=== PATIENT | male | born 1985 | race Caucasian/White ===

== ENCOUNTER 2017-11-28 19:07 | Emergency (ER) | payer OTHER, MEDICAID, SELFPAY ==
[2017-11-28 19:40] VITALS: BP 134/90; PULSE 64; RESP 18; TEMP 36.3; O2SAT 99; BMI 28.7
[2017-11-28 22:04] VITALS: BP 159/108; PULSE 57; RESP 14; O2SAT 100
--- NOTE | 2017-11-28 22:26 | DI.CT.S_ITS ---
PROCEDURE: CT ABDOMEN PELVIS W CON INDICATIONS: 32 year-old man with severe anal pain, possible peroneal abscess. TECHNIQUE: After the administration of oral and intravenous contrast, 5 mm thick sections acquired from the diaphragm to the symphysis. 5 mm coronal and sagittal reformats were acquired. For radiation dose reduction, the following was used: automated exposure control, adjustment of mA and/or kV according to patient size. COMPARISON: None. FINDINGS: Image quality: Excellent. ABDOMEN: Lung bases: Lung bases are clear. Heart size is normal. Tiny hiatal hernia. Solid organs: Liver is normal in size and enhancement. Gallbladder is normal. Biliary system is non dilated. Pancreas enhances normally. Spleen is normal in size and enhancement. No adrenal nodules. Kidneys demonstrate normal size and enhancement, without hydronephrosis. Peritoneum and bowel: Bowel loops demonstrate normal wall thickness and caliber. The appendix measures 7.3 mm, which is just above the upper limits of normal. There is oral contrast within the appendiceal lumen. There is equivocal appendiceal wall thickening. No free fluid or air. Nodes and vessels: No retroperitoneal or mesenteric adenopathy by size criteria. Aorta and inferior vena cava are normal in size. Miscellaneous: Small fat containing periumbilical hernias are present. PELVIS: Appearance of mild rectal renal thickening versus nondistention. Genitourinary: Bladder wall thickness is normal. Miscellaneous: No inguinal hernias. Slightly prominent inguinal lymph nodes are noted bilaterally measuring up to 1.1 cm. Bones: No suspicious bony lesions. No vertebral body compression fractures. IMPRESSION: 1. Anorectal thickening versus nondistention. No perirenal abscess. 2. Small fat containing periumbilical hernias. 3. Appendix is above the upper limits of normal in caliber. Oral contrast is present within the appendiceal lumen. There is equivocal appendiceal wall thickening. Acute appendicitis is felt unlikely but not entirely excluded. 4. Slightly prominent inguinal lymph nodes are noted bilaterally measuring up to 1.1 cm. This finding is nonspecific and may be secondary to infectious, inflammatory or neoplastic etiology. Recommend clinical correlation and follow up. Dictated by: Sen Caballero M.D. on 11/29/2017 at 8:01 Transcribed by: NANCY on 11/29/2017 at 8:09 Approved by: Sen Caballero M.D. on 11/29/2017 at 9:58
--- NOTE | 2017-11-28 22:27 | ED.ABDPAIN ---
HPI - Abdominal Pain General Chief Complaint: Abdominal Pain Stated Complaint: STATES SEVERE ANAL PAIN Time Seen by Provider: 11/28/17 22:25 Source: patient Mode of arrival: ambulatory Limitations: no limitations History of Present Illness HPI narrative: Patient is a 32-year-old male who presents with all rectal discomfort ongoing for the last 4 days. He says every time he has a bowel movement excruciating painful. He denies any blood on toilet paper or his stool. He is now radiating through to his groin. No fever no chills no nausea no vomiting. He has no abdominal pain. He feels like he occasionally has some testicular pain in perineum pain. He has frequent small soft bowel movements. MD complaint: abdominal pain Onset (ago): day(s) (4) Related Data Previous Rx's Medication Instructions Recorded ciprofloxacin HCl [Cipro] 500 mg PO BID #14 tab 11/29/17 hydrocortisone acetate [Anusol-HC] 25 mg DE BID 14 Days each 11/29/17 metronidazole [Flagyl] 500 mg PO TID #21 tab 11/29/17 Allergies Allergy/AdvReac Type Severity Reaction Status Date / Time No Known Drug Allergies Allergy Verified 11/28/17 19:42 Review of Systems Review of Systems GENERAL: Denies chills, fatigue, malaise, fever, sweats, travel HEENT: Denies sinus pain, ear pain, sore throat, difficulty swallowing, neck pain RESPIRATORY: Denies dyspnea, cough, wheezing, hemoptysis, sputum. CARDIOVASCULAR: Denies chest pain, palpitations, orthopnea, edema GASTROINTESTINAL: See HPI : Denies dysuria, frequency, incontinence, hematuria, urinary retention, flank pain. MUSCULOSKELETAL: Denies weakness, joint pain, or bony pain SKIN: No rash, no erythema, no pruritus NEUROLOGIC: Denies weakness, dizziness, headache, numbness, change in speech, confusion PSYCHIATRIC: No concerning psychosocial issues. 12 point review of systems is negative except for those stated above and HPI PFSH Medical History Healthy adult (Acute) Social History Smoking Status: Current every day smoker alcohol intake: never substance use type: does not use Exam Initial Vital Signs Initial Vital Signs: Vital Signs Temperature 97.3 F L 11/28/17 19:40 Pulse Rate 64 11/28/17 19:40 Respiratory Rate 18 11/28/17 19:40 Blood Pressure 134/90 H 11/28/17 19:40 Pulse Oximetry 99 11/28/17 19:40 Const General: cooperative and healthy appearing Orientation: alert, awake and oriented x3 Neck Neck: normal visual inspection, trachea midline, No lymphadenopathy, No midline deformity and No JVD Lymphatic: No lymphedema Chest Chest: normal inspection of the chest Resp Effort & Inspection: normal respiratory effort, able to speak in complete sentences, no respiratory distress and no use of accessory muscles Auscultation: clear to auscultation bilaterally, no rales, no rhonchi and no wheezes Cardio Rate: regular rate Rhythm: regular rhythm Heart Sounds: no click, no gallops, no murmurs and no rubs Pulses: normal peripheral pulses GI Inspection: normal to inspection Palpation: soft, No firm, No guarding and No tender Rectal Exam: visual inspection normal, No abnormal stool, No fecal impaction, No heme negative stool, No hemorrhoids and tenderness (Extreme tenderness with mild swelling noted at about 9 o'clock position) Penis: normal penis Meatus: meatus normal Scrotum: scrotum normal and not edematous Testes: normal, no testicular mass and no testicular swelling Skin General: no rashes or lesions noted, No jaundice and No petechiae Neuro General: alert, oriented x3, gait normal and no focal motor deficits Speech: speech normal Course Orders Ordered: ED Orders 11/28/17 22:26 CT abdomen pelvis w con Stat 11/28/17 23:00 Complete Blood Count AUTO DIFF Stat Comprehensive Metabolic Panel Stat Lipase Stat Discontinued Medications Ciprofloxacin (Cipro) 500 mg PO NOW ONE Stop: 11/29/17 02:00 Sodium Chloride (Normal Saline 0.9%) 1,000 mls @ 1,000 mls/hr IV CONT KILEY Last Infusion: 11/29/17 01:31 Dose: 0 mls/hr Admin: 11/28/17 23:02 Dose: 1,000 mls/hr Ketorolac Tromethamine (Toradol) 30 mg IV NOW ONE Stop: 11/28/17 22:26 Last Admin: 11/28/17 23:02 Dose: 30 mg Levofloxacin (Levaquin) 750 mg PO NOW ONE Stop: 11/29/17 02:09 Last Admin: 11/29/17 02:10 Dose: 750 mg Metronidazole (Metronidazole) 500 mg PO NOW ONE Stop: 11/29/17 02:00 Last Admin: 11/29/17 02:10 Dose: 500 mg Vital Signs - 8 hr 11/28/17 22:04 11/29/17 01:14 Temperature 97.9 F Pulse Rate 57 L 71 Respiratory Rate 14 16 Blood Pressure [Left Arm] 159/108 H Blood Pressure [Right Arm] 157/92 H Pulse Oximetry 100 100 MDM - Abdominal Pain Lab Data Attestation: I reviewed the patient's lab results. Result diagrams: 11/28/17 23:00 11/28/17 23:00 Lab Results 11/28/17 11/28/17 Range/Units 23:00 23:00 WBC 6.8 (4.5-11.0) X10^3/uL RBC 5.00 (4.5-5.9) X10^6/uL Hgb 15.1 (13.5-17.5) g/dL Hct 44.8 (41-53) % MCV 89.4 (80-100) fL MCH 30.1 (26-34) PG MCHC 33.6 (30-36) % RDW 13.2 (11.6-14.8) % Plt Count 184 (150-400) X10^3/uL Neut % (Auto) 65.1 (50-75) % Lymph % (Auto) 21.5 L (25-40) % Bonner % (Auto) 12.5 (3-14) % Eos % (Auto) 0.3 L (2-4) % Baso % (Auto) 0.6 (0-2) % Neut # (Auto) 4400 (4388-4983) /uL Sodium 141 (137-145) mmol/L Potassium 3.9 (3.4-5.1) mmol/L Chloride 101 (98-107) mmol/L Carbon Dioxide 30 (22-32) mmol/L BUN 9 (9-20) mg/dL Creatinine 0.70 (0.66-1.25) mg/dL Estimated GFR > 60.0 (>60) mL/min BUN/Creatinine Ratio 12.9 (6-22) Glucose 89 (70-100) mg/dL Calcium 9.4 (8.4-10.2) mg/dL Total Bilirubin 0.7 (0.2-1.3) mg/dL AST 38 (17-59) IU/L ALT 34 (21-72) IU/L Alkaline Phosphatase 69 (38-126) U/L Total Protein 7.3 (6.3-8.2) g/dL Albumin 4.5 (3.5-5.0) g/dL Globulin 2.8 (1.7-4.1) g/dL Albumin/Globulin Ratio 1.6 (1.0-2.8) Lipase 18 L (23-300) U/L Point of care testing: Urine Dip Bedside Urine Glucose Negative Urine Specific [place] 1.015 Bedside Urine Occult Blood - Negative Bedside Urine pH 6.5 Bedside Urine Protein - Negative Bedside Urine Urobilinogen - Negative Bedside Urine Nitrite - Negative Bedside Urine Leukocytes - Negative Esterase Imaging Data CT scan - abdomen: Radiologist's impression: assembler 1st shift report: No acute intra abdominal or pelvic abnormalities are identified. Questionable rectal thickening versus nondistention A small periumbilical hernia is noted containing fat. Multiple lymph nodes are present in the groin regions measuring up to approximately 1 cm in short axis dimension. MDM Narrative Medical decision making narrative: Patient has only had 4 days of rectal pain. Rectal exam was quite painful. No external of erythema or rash. He is not having any bloody diarrhea or bloody stools to suggest inflammatory bowel disease or hemorrhoid. Blood work is reassuring. However at this time due to the multiple pelvic lymph nodes I will treat for his infection. Also recommended suppositories all to help with inflammation. We discussed that he will need a colonoscopy/sigmoidoscopy once inflammation is is resolved. I discussed all findings with the patient. Education has been performed regarding treatment plan, diagnosis, warning signs and symptoms and all concerns have been addressed. Verbally agree with and understood all of the above. Discharge Plan Departure Patient Disposition: Home, Self-Care Clinical Impression: Colitis Discharge Date/Time: 11/29/17 02:20 Interventions: ED Discharge Assessment Last Done: 11/29/17 02:32 Instructions: Inflammatory Bowel Disease, DI for Ulcerative Colitis Activity Restrictions/Additional Instructions: *You have been diagnosed with colitis *What to do: He will likely need a colonoscopy or sigmoidoscopy once inflammation has improved Avoid constipation *Continue to take medications as directed Cipro 500 mg twice a day for 7 days Flagyl 500 mg 3 times a day for 7 Anusol suppositories as directed for inflammation *Follow up with your primary care provider in 2-3 days *Return to ER if you should have increased pain, bloody diarrhea, vomiting, fever or any new, worsening or concerning symptoms Prescriptions: New metronidazole [Flagyl] 500 mg tablet 500 mg PO TID Qty: 21 RF: 0 ciprofloxacin HCl [Cipro] 500 mg tablet 500 mg PO BID Qty: 14 RF: 0 hydrocortisone acetate [Anusol-HC] 25 mg suppository 25 mg DE BID 14 Days RF: 0 Referrals: Raven eBnnett MD [Physician] - Stand Alone Forms: Work/School Restrictions
[2017-11-28] MEDS: SODIUM CHLORIDE 0.9% 1,000 ML 1000 ML IV (23:02)
[2017-11-28] MEDS: KETOROLAC 60 MG/2 ML VIAL 30 MG IV (23:02)
[2017-11-28 23:14] LABS: Add Manual Diff / Slide Review NO; Basophils Percent Auto 0.6 % (0-2); Eosinophils Percent Auto 0.3 % (2-4); Hematocrit 44.8 % (41-53); Hemoglobin 15.1 g/dL (13.5-17.5); Lymphocytes Percent Auto 21.5 % (25-40); Mean Corpuscular HGB Conc 33.6 % (30-36); Mean Corpuscular Hemoglobin 30.1 PG (26-34); Mean Corpuscular Volume 89.4 fL (80-100); Monocytes Percent Auto 12.5 % (3-14); Neutrophils Absolute Auto 4400 /uL (3000-5900); Neutrophils Percent Auto 65.1 % (50-75); Platelet Count 184 X10^3/uL (150-400); Red Cell Distribution Width 13.2 % (11.6-14.8); White Blood Cell Count 6.8 X10^3/uL (4.5-11.0)
[2017-11-28 23:24] LABS: Alanine Aminotransferase 34 IU/L (21-72); Albumin 4.5 g/dL (3.5-5.0); Albumin Globulin Ratio 1.6 (1.0-2.8); Alkaline Phosphatase 69 U/L (38-126); Aspartate Aminotransferase 38 IU/L (17-59); BUN Creatinine Ratio 12.9 (6-22); Bilirubin Total 0.7 mg/dL (0.2-1.3); Blood Urea Nitrogen 9 mg/dL (9-20); Calcium 9.4 mg/dL (8.4-10.2); Carbon Dioxide 30 mmol/L (22-32); Chloride 101 mmol/L (98-107); Estimated Glomerular Filt Rate > 60.0 mL/min (>60); Globulin 2.8 g/dL (1.7-4.1); Glucose 89 mg/dL (70-100); HEMOLYSIS < 15 (0-50); Lipase 18 U/L (23-300); Potassium 3.9 mmol/L (3.4-5.1); Sodium 141 mmol/L (137-145); Total Protein 7.3 g/dL (6.3-8.2)
[2017-11-29 01:14] VITALS: BP 157/92; PULSE 71; RESP 16; TEMP 36.6; O2SAT 100
[2017-11-29] MEDS: metroNIDAZOLE 250 MG TABLET 500 MG PO (02:10)
[2017-11-29] MEDS: levoFLOXacin 250 MG TABLET 750 MG PO (02:10)
== END 2017-11-29 02:20 | disposition home or self-care (01) ==
PROVIDERS: Emergency Provider Emergency Medicine
DX: K52.9 Noninfective gastroenteritis and colitis, unspecified (principal)
CPT/HCPCS: 36591; 74177; 80053; 81003; 83690; 85025; 96361; 96374; 99283; 99285; J1885; Q9967

== ENCOUNTER 2020-11-09 01:54 | Emergency (ER) | payer OTHER, MEDICAID, SELFPAY ==
[2020-11-09 02:00] VITALS: BP 164/117; PULSE 105; RESP 18; TEMP 36.9; O2SAT 99; BMI 34.4
[2020-11-09 02:02] VITALS: PULSE 113; O2SAT 98
[2020-11-09 02:05] VITALS: BP 165/123
--- NOTE | 2020-11-09 02:10 | ED_ITS ---
HPI - General Adult General Chief complaint: Hypertension Stated complaint: blood pressure is high Time Seen by Provider: 11/09/20 01:59 History of Present Illness HPI narrative: 35-year-old male daily smoker with history of hypertension presents with a chief complaint of elevated blood pressure for the past few weeks as he has been unable to get his blood pressure medications filled by his primary care provider due to scheduling conflicts. Patient has no headache, blurred vision, neck pain or neurologic symptoms such as numbness, tingling or weakness. He denies any balance issue. He denies chest pain, shortness of breath or cough. He denies any abdominal pain. He normally takes lisinopril 20/hydrochlorothiazide 25 he did have some episodes of leg pain last week and some neck pain but nothing sometime. He talked with his father who has significant health history who encouraged him to come be seen. Related Data Previous Rx's Medication Instructions Recorded ciprofloxacin HCl 500 mg tablet 500 mg PO BID #14 tab 11/29/17 (Cipro) metronidazole 500 mg tablet 500 mg PO TID #21 tab 11/29/17 (Flagyl) lisinopril 20 1 tab PO DAILY #30 tab 11/09/20 mg-hydrochlorothiazide 25 mg tablet Allergies Allergy/AdvReac Type Severity Reaction Status Date / Time No Known Drug Allergies Allergy Verified 11/28/17 19:42 Review of Systems Review of Systems Narrative: GENERAL: Denies chills, fatigue, malaise, fever, sweats. HEENT: Denies sinus pain, ear pain, sore throat, difficulty swallowing, dizziness. RESPIRATORY: Denies dyspnea, cough, wheezing, hemoptysis, sputum. CARDIOVASCULAR: Denies chest pain, palpitations, orthopnea, edema, GASTROINTESTINAL: Denies nausea, vomiting, abdominal pain, diarrhea, constipation, melena. : Denies dysuria, frequency, incontinence, hematuria, urinary retention. MUSCULOSKELETAL: See HPI SKIN: Denies rash, skin lesions, or other NEUROLOGIC: See HPI PSYCHIATRIC: No concerning psychosocial issues. 12 point review of systems is negative except for those stated above Patient History Medical History (Updated 11/09/20 @ 02:50 by Luiz Pierson DO) Healthy adult Social History (Updated 11/29/17 @ 04:07 by Krys Mace DO) Smoking Status: Current every day smoker alcohol intake: never substance use type: does not use Smoking Status: Current every day smoker alcohol intake frequency: a few times a week Substance Use Type: marijuana Exam Initial Vital Signs Initial Vital Signs: Vital Signs Temperature 98.5 F 11/09/20 02:00 Pulse Rate 105 H 11/09/20 02:00 Respiratory Rate 18 11/09/20 02:00 Blood Pressure 164/117 H 11/09/20 02:00 Pulse Oximetry 99 11/09/20 02:00 Course Course Course Narrative: after 30 minutes of observation blood pressure subtle into the 160s over 90s, patient did receive his 1st dose of lisinopril here and had been asymptomatic for the duration. While attempting to recheck his blood pressure after administration of medication he became frustrated because it was squeezing and causing him pain. He stormed out of the department prior to discussions about need for follow-up, I did print a prescription for his blood pressure medication and we left at the front office agent with his hat which he left behind Orders Ordered: ED Orders 11/09/20 02:07 EKG-12 Lead Stat Discontinued Medications Lisinopril (Lisinopril 20 Mg Tablet) 20 mg PO NOW ONE Stop: 11/09/20 02:08 Last Admin: 11/09/20 02:26 Dose: 20 mg Documented by: KGALLAG Vital Signs Vital signs: Vital Signs - 8 hr 11/09/20 02:00 11/09/20 02:02 11/09/20 02:05 Temperature 98.5 F Pulse Rate 105 H 113 H Respiratory Rate 18 Blood Pressure 164/117 H 165/123 H Pulse Oximetry 99 98 11/09/20 02:38 Temperature Pulse Rate Respiratory Rate Blood Pressure 160/94 H Pulse Oximetry Discharge Plan Departure Patient Disposition: Left Against Medical Advice Clinical Impression: Hypertension Qualifiers: Hypertension type: primary hypertension Qualified Code(s): I10 - Essential (primary) hypertension Instructions: DI for High Blood Pressure Activity Restrictions/Additional Instructions: *You have been diagnosed with [Hypertension ] *What to do: *Please continue to take your regular medications as directed. [x ] New medication prescriptions sent to your pharmacy: [ ] [ ] New medication written as a paper prescription [ ] No new medications given *Please follow up with your primary care provider in 2-3 days, call for an appointment. Let them know you were seen in the Emergency Department and that we ask that you be seen in follow up. We will electronically transmit a record of today's note if your PCP is in our system *If you do not have a primary care provider please contact the [facility] Resource line at [phone]. They will ask some questions about your medical history and help get you set up with a doctor in the community. *Return to Emergency Department if you should have any new, worsening or concerning symptoms, such as [fever greater than 101 F, shaking chills, worsening pain, persistent vomiting or other bothersome symptoms] Prescriptions: New lisinopril-hydrochlorothiazide 20-25 mg tablet 1 tab PO DAILY Qty: 30 RF: 0 No Action metronidazole [Flagyl] 500 mg tablet 500 mg PO TID Qty: 21 RF: 0 ciprofloxacin HCl [Cipro] 500 mg tablet 500 mg PO BID Qty: 14 RF: 0 Stand Alone Forms: Against Medical Advice
[2020-11-09] MEDS: lisinopriL 20 MG TABLET PO (02:26)
[2020-11-09 02:38] VITALS: BP 160/94
--- NOTE | 2020-11-09 02:50 | PC.NURSE ---
Pt getting very aggravated with how tight the BP cuff was getting. Informed that this is normal when you have high BP that the cuff will pump up high and then come down. Patient extremely rude with staff and talking to someone on the phone in the room and cursing talking about staff. Patient stormed out and left AMA.
--- NOTE | 2020-11-09 03:01 | PC.NURSE ---
Addendum entered by Michelle Barclay R.N. 11/09/20 03:07: Correction-Pt wouldn't allow this nurse to speak will talking aggressively, then proceeded to hang the phone. Original Note: Called patient to inform him, he had left a hat and he had a prescription to picked up. Pt wouldn't let this nurse speak then proceeded to hang up the phone. Pt unaware of the script available.
== END 2020-11-09 02:52 | disposition left against medical advice (07) ==
PROVIDERS: Emergency Provider Emergency Medicine
DX: I10 Essential (primary) hypertension (principal)
CPT/HCPCS: 93005; 93010; 99283

== ENCOUNTER 2024-10-27 00:16 | Emergency (ER) | payer OTHER, SELFPAY ==
[2024-10-27] VITALS (8 sets, daily range): BP systolic 122–133; BP diastolic 80–90; PULSE 74–83; RESP 15–22; TEMP 36.1; O2SAT 94–96; BMI 31.2
--- NOTE | 2024-10-27 00:17 | ED.CHESTPAIN ---
HPI - Chest Pain General Chief Complaint: Abdominal Pain Stated Complaint: CHEST PAIN, LOWER RIB PAIN, HBP, Time Seen by Provider: 10/27/24 00:17 History of Present Illness HPI narrative: Patient is a 39-year-old male past medical history of hypertension comes into the ED from home for evaluation of LUQ abd pain, palpitations, states that it has been ongoing intermittent for the past 2-3 weeks. States has been getting progressively worse which is why he came into the ED for further evaluation treatment. Patient also states that he is 4 months out of a cancer treatment states that he was diagnosed with large B-cell lymphoma next follow up is in mid November 2024 patient follows with [facility]. Patient denies any other symptoms at this time. Related Data Home Medications ?Medication ?Instructions ?Recorded ?Confirmed acyclovir 800 mg tablet 800 mg PO BID 10/27/24 10/27/24 entecavir 0.5 mg tablet 0.5 mg PO DAILY 10/27/24 10/27/24 metoprolol succinate 25 mg 25 mg PO DAILY 10/27/24 10/27/24 tablet,extended release 24 hr Previous Rx's ?Medication ?Instructions ?Recorded lisinopril 20 1 tab PO DAILY #30 tabs 11/09/ mg-hydrochlorothiazide 25 mg tablet Allergies Allergy/AdvReac Type Severity Reaction Status Date / Time rituximab Allergy Intermediate Swelling Verified 10/27/24 00:19 of Lip/Tongue/Throat Review of Systems Review of Systems Narrative: General: Denies fever, chills, weight loss HEENT: Denies headache, eye drainage, eye irritation, head trauma, sore throat, voice change Cardiovascular: Denies any chest pain, palpitations, tachycardia Respiratory: Denies any shortness of breath, cough, wheeze, stridor GI/: Positive left upper quadrant abdominal pain, denies nausea, vomiting, diarrhea, bright red blood per rectum, melanotic stools, urinary frequency, urinary retention, dysuria, hematuria MSK: Denies any joint pain, muscle pains, swelling Skin: Denies any rashes, lesions, discoloration Neuro: Denies any headache, lightheadedness, dizziness, fainting, weakness Psych: Denies SI/HI Patient History Medical History (Updated 10/27/24 @ 02:13 by Jabier Wagner DO) Healthy adult Social History (Updated 11/29/17 @ 04:07 by Krys Mace DO) Smoking Status: Former smoker alcohol intake: never substance use type: does not use tobacco type: smokeless tobacco alcohol intake frequency: a few times a week Exam Narrative Exam Narrative: General: Cooperative, well-developed, not in acute distress HEENT: Normocephalic, atraumatic, PERRLA, normal sclera, eyelids normal Neck: Active full range of motion, atraumatic Chest: Normal to inspection, negative crepitus, no overlying erythema ecchymosis Respiratory: Normal respiratory effort, not in acute respiratory distress, clear to auscultation bilaterally negative cough, wheeze, tachypnea, rhonchi, rales Cardiology: Regular rate rhythm negative gallop, murmur, rubs GI/: No tenderness to palpation, soft, non rigid, normal to inspection, exam deferred MSK: Full active range of motion in all 4 extremities, atraumatic, no tenderness to palpation of any bony prominences Skin: No rashes or lesions noted Neuro: Alert awake oriented x3, moves all 4 extremities spontaneously, cranial nerves intact, able to answer all questions appropriately follows commands appropriately Psych: Cooperative, negative suicidal or homicidal ideations Initial Vital Signs Initial Vital Signs: Vital Signs Temperature 96.9 F L 10/27/24 00:23 Pulse Rate 83 10/27/24 00:23 Respiratory Rate 18 10/27/24 00:23 Blood Pressure 133/90 10/27/24 00:23 Pulse Oximetry 95 10/27/24 00:23 Oxygen Delivery Method Room Air 10/27/24 00:23 Course Orders Ordered: ED Orders 10/27/24 00:35 Complete Blood Count AUTO DIFF Stat Comprehensive Metabolic Panel Stat Lipase Stat MAG [Magnesium] Stat TSH [Thyroid Stimulating Hormone] Stat Troponin & CK Cardiac Panel Stat 10/27/24 00:43 CXR [XR chest 1V] Stat EKG-12 Lead Stat 10/27/24 00:44 CT abdomen pelvis w con Stat Discontinued Medications Famotidine (Famotidine 20 Mg/2 Ml Vial) 20 mg IV NOW ONE Stop: 10/27/24 00:45 Last Admin: 10/27/24 00:51 Dose: 20 mg Documented By: AGNES Sodium Chloride (Normal Saline 0.9%) 1,000 mls @ 1,000 mls/hr IV BOLUS ONE Stop: 10/27/24 01:42 Last Infusion: 10/27/24 01:48 Dose: Infused Documented By: Infusion: 10/27/24 00:57 Dose: 0 mls/hr Documented By: Admin: 10/27/24 00:52 Dose: 1,000 mls/hr Documented By: AGNES Vital Signs Vital signs: Vital Signs - 8 hr 10/27/24 00:23 10/27/24 00:38 10/27/24 00:39 Temperature 96.9 F L Pulse Rate 83 81 Respiratory Rate 18 Blood Pressure 133/90 132/90 Pulse Oximetry 95 96 Oxygen Delivery Method Room Air 10/27/24 00:39 Temperature Pulse Rate 79 Respiratory Rate Blood Pressure Pulse Oximetry 95 Oxygen Delivery Method Room Air MDM - Chest Pain Differential Diagnosis Differential diagnosis: Likely other (ACS, pneumonia, electrolyte abnormality, splenomegaly) Lab Data 10/27/24 00:35 10/27/24 00:35 Labs: Lab Results 10/27/24 Range/Units 00:35 WBC 7.8 (4.5-11.0) X10^3/uL RBC 5.18 (4.5-5.9) X10^6/uL Hgb 15.8 (13.5-17.5) g/dL Hct 45.2 (41-53) % MCV 87.2 (80-100) fL MCH 30.4 (26-34) PG MCHC 34.8 (30-36) % RDW 14.3 (11.6-14.8) % Plt Count 196 (150-400) X10^3/uL Neut % (Auto) 69.6 (50-75) % Lymph % (Auto) 15.8 L (25-40) % [place] % (Auto) 11.4 (3-14) % Eos % (Auto) 2.7 (2-4) % Baso % (Auto) 0.5 (0-2) % Neut # (Auto) 5400 (3086-1699) /uL Lymph # (Auto) 1200 (9401-3078) /uL [place] # (Auto) 900 (0-900) /uL Eos # (Auto) 200 (0-450) /uL Baso # (Auto) 0 (0-100) /uL Sodium 135 L (137-145) mmol/L Potassium 4.0 (3.4-5.1) mmol/L Chloride 101 (98-107) mmol/L Carbon Dioxide 24 (22-32) mmol/L BUN 17 (9-20) mg/dL Creatinine 1.05 (0.66-1.25) mg/dL Estimated GFR > 60 (>60) mL/min BUN/Creatinine Ratio 16.2 (6-22) Glucose 120 H (70-99) mg/dL Calcium 9.5 (8.4-10.2) mg/dL Magnesium 1.8 (1.6-2.3) mg/dL Total Bilirubin 0.4 (0.2-1.3) mg/dL AST 61 H (17-59) IU/L ALT 64 H (<50) IU/L Alkaline Phosphatase 114 (38-126) U/L Total Creatine Kinase 203 H (55-170) U/L Troponin I < 0.012 (0.01-0.034) ng/mL Total Protein 7.6 (6.3-8.2) g/dL Albumin 4.6 (3.5-5.0) g/dL Globulin 3.0 (1.7-4.1) g/dL Albumin/Globulin Ratio 1.5 (1.0-2.8) Lipase 87 (23-300) U/L Urine Dip Bedside Urine Glucose Negative Bedside Urine Bilirubin - Negative Bedside Urine Ketone - Negative Urine Specific [place] 1.015 Bedside Urine Occult Blood +/- Bedside Urine pH 6.0 Bedside Urine Protein - Negative Bedside Urine Urobilinogen - Negative Bedside Urine Nitrite - Negative Bedside Urine Leukocytes - Negative Esterase Imaging Data CT scan - abdomen/pelvis: Radiologist's Impression: [place] [address] CT Scan Report Signed Patient: KESHIA NANCE MR#: [id number] : 1985 Acct:[id number] Age/Sex: 39 / M Date of Service: 10/27/24 Loc: ED Accession Number: [id number] Procedure: CT abdomen pelvis w con Ordering Provider: Jabier Wagner D.O. PROCEDURE: CT ABDOMEN PELVIS W CON INDICATIONS: luq abd pain TECHNIQUE: After the administration of intravenous contrast, axial sections acquired from the lung bases to the pubic symphysis. Coronal and sagittal reformats were performed. For radiation dose reduction, the following was used: automated exposure control, adjustment of mA and/or kV according to patient size. COMPARISON: [facility], CT, CT ABDOMEN PELVIS W CON, 11/29/2017, 0:50. FINDINGS: Image quality: Diagnostic. Lower Chest: No significant findings. ABDOMEN: Liver: No solid mass. Gallbladder: No radiopaque gallstones or wall thickening. Contracted Biliary ducts: No biliary dilation. Pancreas: No ductal dilation. Spleen: Size is within normal limits. Adrenal Glands: No adrenal nodules. Kidneys and Ureters: No hydronephrosis. No solid mass. No complex renal cystic lesion which requires follow up. Stomach and Bowel: Normal colonic caliber, without significant wall thickening. Normal caliber appendix. Peritoneum: No abnormal intraperitoneal fluid. No free air. Ventral Wall: Small fat containing supraumbilical hernias. Abdominal Nodes: No retroperitoneal or mesenteric adenopathy by size criteria. Vessels: Aorta and inferior vena cava are normal in size. PELVIS: Pelvic Organs: Unremarkable. Bladder: No bladder wall thickening, accounting for underdistention. Pelvic Nodes: No enlarged lymph nodes. Miscellaneous: No inguinal hernias are seen. Bones: No aggressive osseous abnormality. IMPRESSION: No acute abdominopelvic process. Chest x-ray: Radiologist's Impression: [place] [address] XRay Report Signed Patient: KESHIA NANCE MR#: [id number] : 1985 Acct:[id number] Age/Sex: 39 / M Date of Service: 10/27/24 Loc: ED Accession Number: [id number] Procedure: XR chest 1V Ordering Provider: Jabier Wagner D.O. PROCEDURE: XR CHEST 1V INDICATIONS: luq abd pain TECHNIQUE: One view of the chest was acquired. COMPARISON: None. FINDINGS: Surgical changes and devices: None. Lungs and pleura: Lungs are clear. No pleural effusions or pneumothorax. Mediastinum: Mediastinal contours appear normal. Heart size is normal. Bones and chest wall: No suspicious bony lesions. Overlying soft tissues appear unremarkable. IMPRESSION: No acute cardiopulmonary abnormality is seen. ECG Data Interpretation: EKG interpreted ED physician sinus 80 beats per minute QTC 417, NH and QRS within normal limits no STEMI MDM Narrative Medical decision making narrative: Patient is a 39-year-old male with history of large B-cell lymphoma currently in remission follow up with the [facility], states last chemotherapy was in April of 2024 comes into the ED from home for evaluation of abdominal pain. States it is to his left upper quadrant, nothing making it better or worse. States it has been ongoing intermittent for the past 2-3 weeks. He denies any other symptoms at this time. Patient had lab work imaging EKG urinalysis performed here in the emergency department. Urinalysis not consistent with acute urinary tract infection. Lab work without any leukocytosis, Chem panel unremarkable creatinine normal, patient with negative troponin, chest x-ray without any acute cardiopulmonary abnormality. CT scan without any acute findings in the abdomen. Patient without any peritoneal signs, he is instructed to follow up with his primary care as well as GI in outpatient setting he verbalized understanding of this and agrees to being discharged home with outpatient follow up Discharge Plan Departure Patient Disposition: Home Clinical Impression: Acute upper abdominal pain Instructions: DI for Abdominal Pain-Adult Activity Restrictions/Additional Instructions: Please follow up with primary care in gastroenterology in outpatient setting Please read the discharge instructions sheet carefully and bring all papers to all doctor follow-up visits, as it may contain information that your doctor may want to see. Disease processes change and evolve, if your symptoms worsen or if you develop any new symptoms that are concerning to you please return for evaluation. Your evaluation today does not show any evidence of any life-threatening/serious illnesses requiring admission to the hospital or surgery. Please follow-up with your doctor for re-evaluation in approximately 1 day. Seek immediate medical attention for any worrisome symptoms. *If you do not have a primary care provider please contact the [facility] Resource line at [phone]. They will ask some questions about your medical history and help get you set up with a doctor in the community. Prescriptions: No Action lisinopril-hydrochlorothiazide 20-25 mg tablet 1 tab PO DAILY Qty: 30 0RF acyclovir 800 mg tablet 800 mg PO BID metoprolol succinate 25 mg tablet extended release 24 hr 25 mg PO DAILY entecavir 0.5 mg tablet 0.5 mg PO DAILY Referrals: Alejandro Watkins MD [Primary Care Provider, Family Practice] Chepe Morales MD [Non-Staff, Internal Medicine] Stand Alone Forms: Patient Portal/API
--- NOTE | 2024-10-27 00:43 | DI.RAD.S_ITS ---
PROCEDURE: XR CHEST 1V INDICATIONS: luq abd pain TECHNIQUE: One view of the chest was acquired. COMPARISON: None. FINDINGS: Surgical changes and devices: None. Lungs and pleura: Lungs are clear. No pleural effusions or pneumothorax. Mediastinum: Mediastinal contours appear normal. Heart size is normal. Bones and chest wall: No suspicious bony lesions. Overlying soft tissues appear unremarkable. IMPRESSION: No acute cardiopulmonary abnormality is seen. Approved by: Hannah Fishman M.D.,Ph.D. on 10/27/2024 at 2:02
--- NOTE | 2024-10-27 00:43 | EKG_ITS ---
[address] [address] Test Date: 2024-10-27 Pat Name: KESHIA NANCE Department: [facility] Room: Gender: Male [employer] Photographer: NEEL : 1985 Requested By: Order Number: [id number] Reading MD: Jose Millan MD Measurements Intervals [place] Rate: 80 P: 38 GA: 164 QRS: 60 QRSD: 98 T: 46 QT: 362 QTc: 417 Interpretive Statements Normal sinus rhythm Electronically Signed On 10-27-2024 7:45:35 PDT by Jose Millan MD
--- NOTE | 2024-10-27 00:44 | DI.CT.S_ITS ---
PROCEDURE: CT ABDOMEN PELVIS W CON INDICATIONS: luq abd pain TECHNIQUE: After the administration of intravenous contrast, axial sections acquired from the lung bases to the pubic symphysis. Coronal and sagittal reformats were performed. For radiation dose reduction, the following was used: automated exposure control, adjustment of mA and/or kV according to patient size. COMPARISON: [facility], CT, CT ABDOMEN PELVIS W CON, 11/29/2017, 0:50. FINDINGS: Image quality: Diagnostic. Lower Chest: No significant findings. ABDOMEN: Liver: No solid mass. Gallbladder: No radiopaque gallstones or wall thickening. Contracted Biliary ducts: No biliary dilation. Pancreas: No ductal dilation. Spleen: Size is within normal limits. Adrenal Glands: No adrenal nodules. Kidneys and Ureters: No hydronephrosis. No solid mass. No complex renal cystic lesion which requires follow up. Stomach and Bowel: Normal colonic caliber, without significant wall thickening. Normal caliber appendix. Peritoneum: No abnormal intraperitoneal fluid. No free air. Ventral Wall: Small fat containing supraumbilical hernias. Abdominal Nodes: No retroperitoneal or mesenteric adenopathy by size criteria. Vessels: Aorta and inferior vena cava are normal in size. PELVIS: Pelvic Organs: Unremarkable. Bladder: No bladder wall thickening, accounting for underdistention. Pelvic Nodes: No enlarged lymph nodes. Miscellaneous: No inguinal hernias are seen. Bones: No aggressive osseous abnormality. IMPRESSION: No acute abdominopelvic process. Approved by: Hannah Fishman M.D.,Ph.D. on 10/27/2024 at 2:07
[2024-10-27] MEDS: FAMOTIDINE 20 MG/2 ML VIAL IV (00:51)
[2024-10-27] MEDS: SODIUM CHLORIDE 0.9% 1,000 ML 1000 ML IV (00:52)
[2024-10-27 00:54] LABS: Add Manual Diff / Slide Review NO; Basophils Absolute Auto 0 /uL (0-100); Basophils Percent Auto 0.5 % (0-2); Eosinophils Absolute Auto 200 /uL (0-450); Eosinophils Percent Auto 2.7 % (2-4); Hematocrit 45.2 % (41-53); Hemoglobin 15.8 g/dL (13.5-17.5); Lymphocytes Absolute Auto 1200 /uL (1100-4500); Lymphocytes Percent Auto 15.8 % (25-40); Mean Corpuscular HGB Conc 34.8 % (30-36); Mean Corpuscular Hemoglobin 30.4 PG (26-34); Mean Corpuscular Volume 87.2 fL (80-100); Monocytes Absolute Auto 900 /uL (0-900); Monocytes Percent Auto 11.4 % (3-14); Neutrophils Absolute Auto 5400 /uL (1500-7000); Neutrophils Percent Auto 69.6 % (50-75); Platelet Count 196 X10^3/uL (150-400); Red Blood Cell Count 5.18 X10^6/uL (4.5-5.9); Red Cell Distribution Width 14.3 % (11.6-14.8); White Blood Cell Count 7.8 X10^3/uL (4.5-11.0)
--- NOTE | 2024-10-27 00:57 | PC.NURSE ---
pt requests that he not receive any NS he states that he tends to cause him to bloat up pt states he will take the pepcid although he eats extremely healthy and does not have a problem with acid reflux so he does not tend to need those type of medications and after having this problem for 2 wks with his other symptoms of palpitations, etc he does not believe that is the problem
[2024-10-27 01:32] LABS: Alanine Aminotransferase 64 IU/L (<50); Albumin 4.6 g/dL (3.5-5.0); Albumin Globulin Ratio 1.5 (1.0-2.8); Alkaline Phosphatase 114 U/L (38-126); Aspartate Aminotransferase 61 IU/L (17-59); BUN Creatinine Ratio 16.2 (6-22); Bilirubin Total 0.4 mg/dL (0.2-1.3); Blood Urea Nitrogen 17 mg/dL (9-20); Calcium 9.5 mg/dL (8.4-10.2); Carbon Dioxide 24 mmol/L (22-32); Chloride 101 mmol/L (98-107); Creatine Kinase 203 U/L (55-170); Estimated Glomerular Filt Rate > 60 mL/min (>60); Glucose 120 mg/dL (70-99); HEMOLYSIS < 15 (0-50); Lipase 87 U/L (23-300); Magnesium 1.8 mg/dL (1.6-2.3); Sodium 135 mmol/L (137-145); Total Protein 7.6 g/dL (6.3-8.2)
[2024-10-27 01:43] LABS: Troponin I < 0.012 ng/mL (0.01-0.034)
[2024-10-27 02:38] LABS: Thyroid Stimulating Hormone 3.05 uIU/mL (0.47-4.68)
== END 2024-10-27 02:29 | disposition home or self-care (01) ==
PROVIDERS: Emergency Provider Student in an Organized Health Care Education/Training Program; PCP Family Medicine
DX: R10.11 Right upper quadrant pain (principal); R00.2 Palpitations
CPT/HCPCS: 71045; 74177; 80053; 81003; 82550; 83690; 83735; 84443; 84484; 85025; 93005; 93010; 96374; 99283; 99284; Q9967